=== PATIENT | male | born 1955 | race Caucasian/White ===

== ENCOUNTER 2022-06-28 06:16 | Day surgery (SDC) | payer OTHER, SELFPAY ==
[2022-06-28] VITALS (7 sets, daily range): BP systolic 142–162; BP diastolic 72–82; PULSE 72–79; RESP 14–20; TEMP 36.7–36.9; O2SAT 94–97; BMI 39.8
[2022-06-28] MEDS: lidocaine HCL 2 % MULTIDOSE 20 ML VIAL INJECTION (08:10)
[2022-06-28] MEDS: BUPIVACAINE 0.5% 30 ML INJECTION (08:10)
--- NOTE | 2022-06-28 08:34 | P.ORPRC_ITS ---
Procedure Note Date of procedure: 06/28/22 Procedure: Preop diagnosis: Right hand index finger stenosing tenosynovitis Postop diagnosis: Right hand index finger stenosing tenosynovitis Procedure: Right hand index finger A1 dariel release Anesthesia: Local Surgeon: Lizandro Gonzalez MD housing assistant property manager: Deidre Brown PA-C EBL: 0 mL Complications: None Specimens: None Drains: None Preoperative antibiotics: None Indications: The patient has a history of right upper extremity index finger painful catching and locking. Despite appropriate non operative management including flexor tendon sheath corticosteroid injections they continue to have symptoms. Operative intervention was recommended. The risks, benefits alternatives and expected outcomes were discussed in detail. These included but were not limited to: Infection, bleeding, injury to blood vessel or nerve, venous thromboembolism. All questions were answered to their satisfaction. The patient was placed supine on the operating room table. Local anesthesia was established with 0.5% Marcaine without epinephrine and 2% lidocaine without epinephrine. The hand was prepped and draped in usual sterile fashion. The limb was elevated the forearm pneumatic tourniquet was inflated to 250 mm of mercury. A transverse incision was made centered over the base of the index finger in proximal palmar crease. Subcutaneous dissection was taken through the palmar fascia to the flexor tendons with the tenotomy scissors. The A1 dariel was released with the 15 blade and a tenotomy scissors. Active flexion and extension of the finger shows no catching or locking, no bowstringing of the flexor tendons. The wound was closed with interrupted nylon sutures. A dry dressing was applied the tourniquet was released. Sponge and needle counts were correct x 2. The patient tolerated the procedure well, there were no apparent complications. They were sent to same day surgery in satisfactory condition. Plan: Use of the hand as tolerates. Discontinue the intraoperative dressing on postoperative day 3 and may get the wound wet as tolerates. Follow up in the office in 2 weeks for a wound check and suture removal.
== END 2022-06-28 08:47 | disposition home or self-care (01) ==
PROVIDERS: PCP Family Medicine; Visit Provider Orthopaedic Surgery
PROC: (CPT 26055; principal; 2022-06-28 08:15)
DX: M65.321 Trigger finger, right index finger (principal); M65.841 Other synovitis and tenosynovitis, right hand
CPT/HCPCS: 26055; J3490

== ENCOUNTER 2023-02-08 13:49 | Outpatient (CLI) | payer OTHER, SELFPAY ==
[2023-02-08 14:40] LABS: Hematocrit 48.3 % (37.0-53.0); Hemoglobin* 16.5 gm/dL (13.5-17.5); Mean Corpuscular Volume 94 fL (80-100); Red Blood Count 5.13 m/uL (4.30-5.90); White Blood Count* 5.98 K/uL (4.50-11.00)
[2023-02-08 14:41] LABS: Mean Corpuscular HGB Conc 34 gm/dL (32-36); Mean Corpuscular Hemoglobin 32 pg (26-34); Platelet Count* 98 K/uL (140-440)
[2023-02-08 14:44] LABS: Slide Review Reflex Yes
[2023-02-08 15:17] LABS: Slide Review Acceptable Review (Acceptable)
[2023-02-08 23:57] LABS: Albumin* 4.1 g/dL (3.3-5.0); Chloride* 107 mmol/L (96-114); Sodium* 139 mmol/L (135-149)
[2023-02-08 23:58] LABS: Potassium* 4.2 mmol/L (3.6-5.1)
[2023-02-09] LABS: Alkaline Phosphatase* 216 U/L (40-150); Anion Gap 4 mEq/L (7-15); Aspartate Amino Transferase* 72 U/L (12-35); Bilirubin Total* 1.9 mg/dL (0.1-1.5); Blood Urea Nitrogen* 15 mg/dL (7-30); Carbon Dioxide* 28 mmol/L (20-32); Cholesterol* 218 mg/dL (90-199); Creatinine* 0.7 mg/dL (0.5-1.5); Estimated Glomerular Filt Rate 102 ml/min; Glucose* 88 mg/dL (60-115); Triglycerides* 107 mg/dL (40-149)
[2023-02-09 00:01] LABS: Alanine Aminotransferase* 47 U/L (4-50); Calcium* 9.7 mg/dL (8.4-10.6)
[2023-02-09 00:08] LABS: HDL Cholesterol* 116 mg/dL (>=40); LDL Cholesterol Calculated 81 mg/dL (<100)
[2023-02-09 00:25] LABS: PSA Screen* 1.25 ng/mL (0.10-4.00)
== END 2023-02-08 13:50 | disposition home or self-care (01) ==
PROVIDERS: PCP Family Medicine; Visit Provider Family Medicine
DX: R10.9 Unspecified abdominal pain (principal); Z12.5 Encounter for screening for malignant neoplasm of prostate; Z13.220 Encounter for screening for lipoid disorders
CPT/HCPCS: 80053; 80061; 84153; 85027

== ENCOUNTER 2023-02-14 14:40 | Outpatient (CLI) | payer OTHER, SELFPAY ==
--- NOTE | 2023-02-14 15:00 | CRLHL7_ITS ---
For Patients: As a result of the Century Cures Act, medical imaging exams and procedure reports are released immediately into your electronic medical record. You may view this report before your referring provider. If you have questions, please contact your health care provider. INDICATION: ABD pain and abnormal liver functions COMPARISON: none TECHNIQUE: Real time barroso scale imaging and color Doppler analysis was performed of the right upper quadrant. FINDINGS: The liver contour is lobular and the echotexture is coarsened. No intrahepatic mass. There is a normal appearance of the hepatic IVC and proximal abdominal aorta. There is no evidence of ascites. The gallbladder is of normal size and there is no evidence of intraluminal stones or sludge. The gallbladder wall measures 3.2 mm in thickness. The common bile duct is of normal size and measures 6.1 mm in diameter at the level of the gibran hepatis. The pancreas appears normal. There is no evidence of a stone or hydronephrosis within the right kidney. The right kidney measures 13.6 cm in length. Right renal cysts are present measuring up to 3.3 x 3.4 x 3.4 cm. IMPRESSION: Coarsened hepatic echotexture with a lobular contour suggesting cirrhosis. No ascites. Normal gallbladder. Dictated by Francisco Vo MD @ 02/15/2023 11:50:25 AM (Electronically Signed)
== END 2023-02-14 14:41 | disposition home or self-care (01) ==
LOC: US 14:41
PROVIDERS: PCP Family Medicine; Visit Provider Family Medicine
DX: R10.9 Unspecified abdominal pain (principal); R79.89 Other specified abnormal findings of blood chemistry
CPT/HCPCS: 76705

== ENCOUNTER 2024-08-04 09:09 | Outpatient (CLI) | payer OTHER, SELFPAY | END 2024-08-04 09:10 | disposition home or self-care (01) | PROVIDERS: PCP Family Medicine; Visit Provider Family Medicine | DX: N40.0 Benign prostatic hyperplasia without lower urinary tract symptoms (principal); Z13.228 Encounter for screening for other metabolic disorders; Z13.6 Encounter for screening for cardiovascular disorders; Z12.5 Encounter for screening for malignant neoplasm of prostate | CPT/HCPCS: 80048; 80061; G0103 ==

== ENCOUNTER 2024-08-22 10:08 | Emergency (ER) | payer OTHER, SELFPAY ==
--- OUTSIDE RECORDS SUMMARY | 2014-04-07 06:30 | XMS_ITS | Continuity of Care Document ---
Author Organization JORGITO Winter Address [address] [facility] [address] [place] [address] Phone Care Team Providers Care Canopy Inspector Name Role Phone Unavailable Unavailable Unavailable Allergies, Adverse Reactions, Alerts Substance Reaction Status Criticality fentanyl Anxiety Active No Information Penicillins Hives Active No Information Medications Medication Instructions Dosage Effective Dates (start - stop) Status Comments Prilosec 10 mg capsule,delayed release take 1 Capsule by ORAL route every day before a meal 10 MG - Active ibuprofen 200 mg capsule take 2 capsule by oral route every 6 hours as needed 400 MG - Active Procedures Procedure Date Inj Anes Facet Jt; Lumb/sac-2nd Level Ja Inj Anes Facet Jt; Lumb/sac-3rd Level Ja Inj Anes Facet Jt; Lumb/sac-1st Level New Pt Eval 45 Min Pain Assessment And Follow Up Plan Docum ented Advance Directives Directive Yes / No Effective Date File Name No Information Encounters Encounter Description Practice Location Reason(s) For Visit Diagnoses Date Provider Providers Copied on Encounter JORGITO Winter, [address], [place], [place], [id number], [place] tel:[phone] [facility] No Information 5 No Information New Pt Eval 45 Min JORGITO Winter, [address], [place], [place], [id number], [place] tel:[phone] [facility] No Information 5 No Information Referring Provider: REFERRAL SELF, JORJE. Family History Family Member Type Diagnosis Age At Onset Sister Problem (finding) Cancer Sister Problem (finding) Heart Disease Brother Problem (finding) Renal disease Brother Problem (finding) Cancer Mother Problem (finding) Cancer Father Problem (finding) Cancer Payers Payer name Insurance type Covered libertarian ID Nicola bright(s) [employer] [id number] Social History Type Description Quantity Date Captured Comments Alcohol Use Details No Caffeine Use Details No Tobacco Use Status Occasional cigarette smoker Smoking Status No Information Smoking Tobacco Use Details Cigarette: No Details Available Cigarette: No Details Available Sex Male Vital Signs Date / Time: Height Weight BMI Pulse Rate Blood Pressure Temperature Respiratory Rate Body Surface Area Head Circumference Head Circ. Percentile Wt./Jass. Percentile BMI percentile Pulse Ox Inhaled Ox 10:56 AM 78 /min 146/88 mm[Hg] 98.90 F 98 % 11:09 AM 82 /min 141/85 mm[Hg] 16 /min 98 % 11:14 AM 82 /min 141/85 mm[Hg] 16 /min 98 % 11:19 AM 83 /min 132/86 mm[Hg] 16 /min 97 % 11:24 AM 82 /min 134/84 mm[Hg] 16 /min 97 % 11:29 AM 82 /min 133/91 mm[Hg] 16 /min 97 % 11:39 AM 79 /min 136/87 mm[Hg] 16 /min 96 % 11:44 AM 72 /min 135/86 mm[Hg] 16 /min 99 % 11:58 AM 71 /min 137/88 mm[Hg] 16 /min 99 % Chief Complaint And Reason For Visit No Information Reason For Referral Reason For Referral No Information History Of Present Illness Encounter Date Complaint History Of Prese nt Illness No Information Functional Status Date Functional Assessmen t Pain Score 1/10 Pain Score 0/10 Pain Score 0/10 Instructions Date Instruction Additional Infor mation Epidural Steroid Injection educa tion Epidural Steroid Injection educa tion Assessments Type Assessment Date No Information Patient Care Teams Name Effective Dates (start - stop) Status Members No Information
--- OUTSIDE RECORDS SUMMARY | 2014-04-07 06:30 | XMS_ITS | Continuity of Care Document ---
Author Organization JORGITO Winter Address [address] [facility] [address] [place] [address] Phone Care Team Providers Care Adjunct Professor Of Law Name Role Phone Unavailable Unavailable Unavailable Allergies, Adverse Reactions, Alerts Substance Reaction Status Criticality fentanyl Anxiety Active No Information Penicillins Hives Active No Information Medications Medication Instructions Dosage Effective Dates (start - stop) Status Comments ibuprofen 200 mg capsule take 2 capsule by oral route every 6 hours as needed 400 MG - Active Prilosec 10 mg capsule,delayed release take 1 Capsule by ORAL route every day before a meal 10 MG - Active Procedures Procedure Date Inj [...] Providers Copied on Encounter JORGITO Winter, [address] [facility] [address], [place], [place], [id number], [place] tel:[phone] [facility] No Information 5 No Information New Pt Eval 45 Min JORGITO Winter, [address] [facility] [address], [place], [place], [id number], [place] tel:[phone] [facility] No Information 5 No Information Referring Provider: REFERRAL SELF, JORJE. Family History Family Member Type Diagnosis Age At Onset Sister Problem (finding) Cancer Sister Problem (finding) Heart Disease Brother Problem (finding) Renal disease Brother Problem (finding) Cancer Mother Problem (finding) Cancer Father Problem (finding) Cancer Payers Payer name Insurance type Covered constitution party ID Nicola bright(s) [employer] [id number] Social History Type Description Quantity Date Captured [...]
--- OUTSIDE RECORDS SUMMARY | 2024-07-20 04:01 | XMS_ITS | Continuity of Care Document ---
Author Organization [facility] Address [address] [address] [place] [address] Phone Care Team Providers Care Banking And Finance Instructor Name Role Phone Maria Guadalupe Muñoz CRNA Unavailable Unavailable Allergies, Adverse Reactions, Alerts Substance Reaction Status Criticality No Known Allergies Active No Inform ation Medications Medication Instructions Dosage Effective Dates (start - stop) Status Comments omeprazole 20 mg capsule,delayed release take 1 capsule by oral route every day 30 minutes to 1 hour before a meal 20 MG - Active tramadol 50 mg tablet take 1 tablet by o ral route every 6 hours as needed 50 MG - Active tizanidine 2 mg capsule take 1 capsule by oral route every 6 - 8 hours as needed not to exceed 3 doses in 24 hours 2 MG - Active Tylenol 8 Hour 650 mg tablet,extended release take 1 tablet by oral route 2 times every day as needed swallowing whole with water. Do not break, crush, dissolve and/or chew. 650 MG - Active Procedures Procedure Date Colonoscopy Flex; W/remov Les- Level Iv-surg Path Gross/micro Advance Directives Directive Yes / No Effective Date File Name No Information Encounters Encounter Description Practice Location Reason(s) For Visit Diagnoses Date Provider Providers Copied on Encounter [facility], [address] [address], [place], [id number], [place] tel:[phone] [facility] No Information Toni Lerma. [address] [facility] [facility] [address], [place], [id number] , [place]. tel:[phone] Referring Provider: Ascencion Kate MD, [address] [facility] [address], [place], [address] . tel:[phone] [facility], [address] [address], [place], [id number], [place] tel:[phone] [facility] GI Symptoms or Concerns (chief complaint) Colorectal polypsDiverticulosi s of colon without diverticulitisHisto ry of colon polypsInternal and external hemorrhoids without complicationEncount er for screening for malignant neoplasm of colonBenign neoplasm of rectumBenign neoplasm of descending colonPersonal history of adenomatous and serrated colon polyps 5 [place]. [address] [facility], [facility] [address], [place], [id number] , [place]. tel:[phone] Referring Provider: Referral Self, USE FOR SELF REFERRALS. [facility], [address] [address], [place], [id number], [place] tel:[phone] [facility] No Information 5 Shine Holcomb. [address] [facility], [facility] [address], [place], [address] , [place]. tel:[phone] Family History Family Member Type Diagnosis Age At Onset Brother Problem (finding) Hepatitis C Brother Problem (finding) Cirrhosis Brother Problem (finding) Colon polyps Father Problem (finding) GERD Immunizations Vaccine Date Status Comments Pneumococcal conjugate vacci ne 20-valent (PCV20), polysaccharide [id number] conjugate, adjuvant, preservative free administered Note: [facility] bi-direct ional interface ; Source: Other Registry tetanus toxoid, reduced diphtheria toxoid, and acellular pertussis vaccine, adsorbed administered Note: [facility] b i-directional interface ; Source: Other Registry SARS-COV-2 (COVID-19) vaccin e, mRNA, spike protein, LNP, preservative free, 30 mcg/0.3mL dose administered Note: [facility] bi-direct ional interface ; Source: Other Registry SARS-COV-2 (COVID-19) vaccin e, mRNA, spike protein, LNP, preservative free, 30 mcg/0.3mL dose administered Note: [facility] bi-direct ional interface ; Source: Other Registry Afluria Qd administered Note: [facility] bi-directional interface ; Source: Other Registry zoster vaccine, live administered Note: [facility] bi-directional interface ; Source: Other Registry tetanus toxoid, reduced diphtheria toxoid, and acellular pertussis vaccine, adsorbed administered Note: [facility] b i-directional interface ; Source: Other Registry tetanus and diphtheria toxoi ds, adsorbed, preservative free, for adult use (5 Lf of tetanus toxoid and 2 Lf of diphtheria toxoid) administered Note: [facility] C bi- directional interface ; Source: Other Registry Payers Payer name Insurance type Covered democrat ID Nicola bright(s) [employer] [id number] Social History Type Description Quantity Date Captured Comments Sex Male Smoking Status No Information Chief Complaint And Reason For Visit No Information Reason For Referral Reason For Referral No Information Plan Of Treatment Date Type Action Status Referral Ordered: Colonoscopy Appointment date/timeframe: 07/21/2027 ordered History Of Present Illness Encounter Date Complaint History Of Prese nt Illness GI Symptoms or Concerns Functional Status Date Functional Assessmen t No Information Instructions Date Instruction Additional Infor mation Diverticulosis/Diverticulitis Re lated to Colorectal polyps Colon Polyps Related to Color ectal polyps Hemorrhoids Related to Color ectal polyps Colon Cancer Prevention Related to Colorectal polyps Assessments Type Assessment Date No Information Patient Care Teams Name Effective Dates (start - stop) Status Members No Information
--- OUTSIDE RECORDS SUMMARY | 2024-07-20 04:01 | XMS_ITS | Continuity of Care Document ---
Author Organization [facility] Address [address] [address] [place] [address] Phone Care Team Providers Care Revenue Stamp Cutter Name Role Phone Maria Guadalupe Muñoz CRNA [...] Diagnoses Date Provider Providers Copied on Encounter [facility], [address] [address], [place], [id number], [place] tel:[phone] [facility] No Information Toni Lerma. [address] [facility], [facility] [address], [place], [place], [id number] , [place]. tel:[phone] Referring Provider: Ascencion Kate MD, [address] [facility] [address], [place], [address] . tel:[phone] [facility], [address] [address], [place], [id number], [place] tel:[phone] [facility] GI Symptoms or Concerns (chief complaint) Colorectal polypsDiverticulosi s of colon without diverticulitisHisto ry of colon polypsInternal and external hemorrhoids without complicationEncount er for screening for malignant neoplasm of colonBenign neoplasm of rectumBenign neoplasm of descending colonPersonal history of adenomatous and serrated colon polyps 5 [place]. [address] [facility], [facility] [address], [place], [id number] , [place]. tel:[phone] Referring Provider: Referral Self, USE FOR SELF REFERRALS. [facility], [address] [address], [place], [id number], [place] tel:[phone] [facility] No Information 5 Shine Holcomb. [address] [facility], [facility] [address], [place], [address] , [place]. tel:[phone] Family History Family Member Type Diagnosis Age At Onset Brother Problem (finding) Hepatitis C Brother Problem (finding) Cirrhosis Brother Problem (finding) Colon polyps Father Problem (finding) GERD Immunizations Vaccine Date Status Comments Pneumococcal conjugate vacci ne 20-valent (PCV20), polysaccharide [id number] conjugate, adjuvant, preservative free administered Note: [facility] [...] Registry Payers Payer name Insurance type Covered constitution party ID Nicola bright(s) [employer] [id number] Social History Type Description Quantity Date Captured [...]
[2024-08-22] VITALS (8 sets, daily range): BP systolic 145–155; BP diastolic 74–80; PULSE 90–104; RESP 13–18; TEMP 37.3–37.9; O2SAT 87–96; BMI 25.7
--- OUTSIDE RECORDS SUMMARY | 2024-08-22 10:09 | XMS_ITS | Clinical Summary ---
Author Organization [facility] Address [address] [place] [address] Care Team Providers Care Director Business Name Role Phone Pcp, No Primary Care Provider Unavailabl e Allergies Active Allergy Reactions Criticality Noted Date Comments Fentanyl Anxiety 09/26/2006 Penicillins 07/24/2006 lightheaded and nausated Medications ibuprofen (ADVIL; MOTRIN) 200 mg tablet Take 3 tablets by mouth once daily. 0 04/22/2009 Active naproxen (NAPROSYN) 500 mg tablet Take 1 tablet by mouth 2 times daily with meals. 36 tablet 1 07/23/2014 1:01 PM CDT 07/22/2014 Active omeprazole (PRILOSEC) 20 mg Delayed-Release capsuleIndicatio ns:Gastroesophag eal reflux disease, esophagitis presence not specified Take 1 capsule by mouth once daily before a meal. 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 Immunizations Immunization Administration Dates Next Due AMB Influenza, IIV4 PF (=>6 mos Flulaval,Fluzone Fluarix)(Flu Clinic Only) 12/22/2013 Hepatitis B (Adult) 09/09/1992,04/12/1992,1992 Influenza, IIV3 (Age >=3 years) 01/06/2013,02/02 Td (Age >=7 Years) 05/08/2006 Tdap 06/13/2012 Zoster (Zostavax-ZVL, live) 01/06/2013 Family History Medical History Relation Name Comments Other Brother liver cancer Other Father lymphoma Other Mother lymphoma Diabetes Sister type 1 Relation Name Status Comments Brother Father Alive Mother Sister Social History Tobacco Use Types Packs/Day Years Used Date Smoking Tobacco: Former Cigarettes Q uit: 03/11/1986 Smokeless Tobacco: Never Tobacco Cessation:Counseling Given: Yes Alcohol Use Standard Drinks/Week Comments No 0 (1 standard drink = 0.6 oz pur e alcohol) Sex and Gender Information Value Date Recorded Sex Assigned at Not on file Legal Sex Male 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 DEPARTMENT MANAGER Gender Identity Not on file Sexual Orientation Not on file Occupation Industry Job Start Date Job End Date [employer] Not on file Not on file Not on file Obstetrics History Last Filed Vital Signs Vital Sign Reading Time Taken Comments Blood Pressure 121/82 02/21/2015 1:31 PM TOY DEPARTMENT MANAGER Pulse 76 02/21/2015 1:31 PM TOY DEPARTMENT MANAGER Temperature 36.8 C (98.2 F) 02/21/2015 1:31 PM TOY DEPARTMENT MANAGER Respiratory Rate - - Oxygen Saturation 96% 02/21/2015 1:31 PM TOY DEPARTMENT MANAGER Inhaled Oxygen Concentration - - Weight 95 kg (209 lb 8 oz) 02/21/2015 1:31 PM CS T Height 162.6 cm (5' 4) 12/28/2014 4:17 PM CDT Body Mass Index 35.96 12/28/2014 4:17 PM CDT Plan of Treatment Health Maintenance Due Date Last Done Comments Depression screening for age 12+ 1969 BMI (ht and wt on same day) for age 18+ 05/24/1975 Pneumococcal series for age 50+ (1 of 1 - PCV) 05/24/2007 Zoster (shingles) series for age 50+ (2 of 3) 03/03/2013 01/06/2013 Lipids for age 45-75 10/07/2018 10/07/2013, 06/13/2012, 04/22/2009, Additional history exists Colonoscopy through age 75 11/23/201811/23, 11/23/2013, 11/23/2013 Tetanus booster 06/13/2022 06/13/2012, 05/08/2006 COVID-19 vaccine series ( season) 2023 Influenza Vaccine (Season Ended) 2024 12/22/2013, 01/06/2013, 02/02/2002 RSV vaccine for adults or (1 - 1-dose 75+ series) 2032 Hepatitis B series for 19+ Completed 09/09, 04/12/1992, 03/12/1992 Hepatitis C screening for ag e 18-79 Completed 05/27/2006 Tdap Completed 06/13/2012 Procedures Procedure Name Priority Date/Time Associated Diagnosis Comments SCAN-COLONOSCOPY 11/23/2013 12:0 0 AM CDT LIPID PANEL W REFLEX MEASURED LDL Routine 10/07/2013 11:20 AM CDT Routine general medical examination at a health care facility ANTI HCV Timed 05/27/2006 2:17 PM CDT from Last 3 Months or Most Recently Relevant to Health Maintenance Results * SCAN-COLONOSCOPY (11/23/2013 12:00 AM CDT) Narrative 11/23/2013 12:00 AM CDT Procedure Note Scanner - 11/23/2013 12:00 AM CDT us Scanner OTHER Final Result * LIPID PANEL W REFLEX MEASURED LDL (10/07/2013 11:20 AM CDT) CHOLESTEROL,TOTAL 188 100 - 199 mg/dL 10/07/2013 11:51 AM CDT [facility] TRIGLYCERIDES 75 <150 mg/dL 10/07/2013 11:51 AM CDT [facility] HDL CHOLESTEROL 58 >40 mg/dL 4 11:51 AM CDT [facility] NON-HDL CHOLESTEROL 130 <145 mg/dl 10/07/2013 11:51 AM CDT [facility] CHOL/HDL RATIO 3.24 <4.50 10/07/2013 11:51 AM CDT [facility] LDL CHOLESTEROL 115 <=130 mg/dL 10/07/2013 11:51 AM CDT [facility] PATIENT STATUS FASTING 10/07/2013 11:51 AM CDT [facility] Blood specimen (specimen) BLOOD SPECIMEN / Unknown Venipuncture / Unknown 10/07/2013 11:20 AM CDT 10/07/2013 11:20 AM CDT us Francisco Mittal MD CHEMISTRY Final Resu lt [facility] [address] [place] [address], * ANTI HCV (05/27/2006 2:17 PM CDT) ANTI HCV Non-reactiv e [facility] 05/27/2006 2:17 PM CDT 05/27/2006 7:23 PM CDT Narrative [facility] - 06/02/2006 12:19 PM CDT Testing Performed By [place], [place] Francisco Mittal MD SEND OUTS Final Resu lt [facility] [address] [place] [address] from Last 3 Months or Most Recently Relevant to Health Maintenance Insurance [address] [place] [id number] [employer] [id number] [place] [id number] [employer] Care Teams Director Business Relationship Specialty Start Date End Date Pcp, No . PCP - General 08/01/20
--- NOTE | 2024-08-22 10:30 | CRLHL7_ITS ---
For Patients: As a result of the Century Cures Act, medical imaging exams and procedure reports are released immediately into your electronic medical record. You may view this report before your referring provider. If you have questions, please contact your health care provider. INDICATION: Left lower quadrant pain. COMPARISON: 06/05/2020 TECHNIQUE: CT of the abdomen and pelvis with intravenous contrast. Multiplanar axial, coronal, and sagittal reformats were reconstructed. Contrast: 71 mL Isovue 370. FINDINGS: Lung bases: Bands of linear atelectasis or scarring are about the same as the previous examination. Liver: Cirrhosis. Hepatic and portal veins appear to be patent. The umbilical vein is large and recannulated. Gallbladder and bile ducts: There is a single 5 millimeter densely calcified gallstone. No findings of cholecystitis. No bile duct dilation. Pancreas: Normal. Spleen: Splenomegaly. Spleen length is 15 centimeters. There is a large splenule at the anterior splenic hilum. No splenic infarct or mass. Adrenal glands: No adrenal mass or nodule. Kidneys: Normal overall renal size and position. Multi-cystic kidneys. There are several 2-3 millimeter urinary tract calculi bilaterally. Calculi are limited to the upper collecting system without any ureteral calculi. No urinary tract dilation. Urinary bladder: There is a 2 millimeter calcification in the dependent central bladder. Pelvis: No cyst or mass. Vessels: No significant atherosclerotic plaques. Retroaortic left renal vein. Mesenteric arteries and veins are patent. Large varices in the upper abdomen. Bowel: Focal sigmoid wall thickening with inflammation of a diverticulum. There is a small amount of extraluminal gas. There is a moderate amount of adjacent inflammatory stranding and some fluid layering in the left pericolic gutter inferiorly. No abscess or discrete collection. The remainder of the bowel has an unremarkable normal appearance. Normal appendix. Mild stool burden. Lymph nodes: Prominent upper abdominal lymph nodes may be reactive in the setting of cirrhosis. Peritoneum: Trace fluid around the sigmoid colon. No layering ascites. There is some focal free air adjacent to the sigmoid colon but there is not a large amount of intraperitoneal free air. Abdominal wall: Small fat containing umbilical hernia. No bowel containing hernia. Bones: No fractures. No focal worrisome bone lesions. IMPRESSION: 1. Perforated sigmoid diverticulitis. No abscess or collection. 2. Cirrhosis. Splenomegaly. Varices. No ascites. 3. Multi-cystic kidneys. 4. Bilateral nonobstructing nephrolithiasis. Please note that all CT scans at this facility use dose modulation, iterative reconstruction, and/or weight-based dosing when appropriate to reduce radiation dose to as low as reasonably achievable. Dictated by Miri Nowak MD @ 08/22/2024 11:24:36 AM (Electronically Signed)
--- NOTE | 2024-08-22 10:32 | ED.ABDPAIN ---
HPI - Abdominal Pain General Chief Complaint: Abdominal Pain Stated Complaint: severe pain, pt thinking he may have kidney stones Time Seen by Provider: 08/22/24 10:23 History of Present Illness HPI narrative: This 69-year-old male comes in with left-sided abdominal pain that began a couple days ago. He states that the pain is worse with movement. He thought he was constipated and did take some laxatives without relief. He did have a colonoscopy about a month ago with evidence of diverticulosis. Related Data Home Medications ?Medication ?Instructions ?Recorded ?Confirmed acetaminophen 325 mg tablet 650 mg PO DAILY 04/10/24 08/04/24 (Tylenol) bismuth subsalicylate 262 mg 1 tab PO Q30-60M PRN 04/10/24 08/04/24 chewable tablet (Pepto-Bismol) esomeprazole magnesium 20 mg 20 mg PO QDAY 05/11/24 08/04/24 capsule,delayed release (Nexium 24HR) Previous Rx's ?Medication ?Instructions ?Recorded tizanidine 4 mg tablet See Rx Instructions .Route 06/24/24 .COMPLEX #30 tabs alfuzosin 10 mg tablet,extended 10 mg PO QDAY #30 tabs 08/04/24 release 24 hr (Uroxatral) fluticasone 500 mcg-salmeterol 50 1 inh inhalation BID #60 ea 08/04/24 mcg/dose blistr powdr for inhalation tramadol 50 mg tablet 25 mg (1/2 x 50 mg) PO Q6H PRN 08/18/24 pain #60 tabs Allergies Allergy/AdvReac Type Severity Reaction Status Date / Time chestnut Allergy Unknown Verified 08/22/24 11:15 fentanyl Allergy Unknown Anxiety Verified 08/22/24 11:15 peanut Allergy Unknown Verified 08/22/24 11:15 Review of Systems Status of ROS Reports: 10 or more systems reviewed and unremarkable except as noted in History and below Narrative Constitutional: No fevers, no weight gain or loss. Eyes: No discharge. No vision changes. HENT: No congestion, no sore throat, no ear pain. Cardiovascular: No chest pain, no palpitations. Respiratory: No shortness of breath, no wheezes, no cough. Gastrointestinal: No vomiting, no diarrhea. Left-sided abdominal pain. Genitourinary: No dysuria, no hematuria. Musculoskeletal: Normal range of motion. Skin: No rashes, no pruritis. Neurological: No dizziness, weakness, sensory change, speech change. Endo/Heme/Allergies: No bruising or bleeding. No polydipsia. Pysch: no suicidality, no anxiety, no insomnia. All other systems reviewed and are negative. [facility] Medical History History of herpes zoster ?Z86.19 - Personal history of other infectious and parasitic diseases (ICD-10) Surgical History S/P trigger finger release (06/28/22) ?Z98.890 - Other specified postprocedural states (ICD-10) S/P trigger finger release (09/29/20) ?Z98.890 - Other specified postprocedural states (ICD-10) Status post excision of lipoma ?Z98.890 - Other specified postprocedural states (ICD-10) ?Z86.018 - Personal history of other benign neoplasm (ICD-10) Family History Unknown Diabetes Lymphoma Social History Smoking Status: Former smoker How often do you have a drink containing alcohol: never AUDIT-C Alcohol total score: 0 Non-prescribed substance use: denies use Exam Narrative: Exam Narrative: Constitutional: Well-developed, well-nourished, no acute distress. HEENT: Normocephalic, atraumatic. Neck: Normal range of motion. Nontender. Supple. Heart: Regular. No murmurs. Normal rate. Intact distal pulses. Lungs: Clear to auscultation. No chest discomfort. No wheezes, rhonchi, or rales. Abdomen: Normal bowel sounds. Left-sided abdominal pain with obvious rebound tenderness. Genitalia: Deferred. Back: No midline tenderness. Normal range of motion. Extremities: Normal range of motion. No injury. Skin: Intact. No rash. Warm. No erythema or pallor. Neurologic: No altered sensation. No weakness. Alert and oriented. Psychiatric: No suicidality. No anxiety or depression. No insomnia. Nursing notes and vitals signs are reviewed. Const: Vital Signs, click to edit/add: Vital Signs - 24 hr 08/22/24 10:14 08/22/24 10:38 08/22/24 10:55 Temperature 100.2 F H Pulse Rate [Pulse Oximeter] 90 Respiratory Rate 18 Blood Pressure [Ri ght Upper Arm] 145/74 H Pulse Oximetry 92 88 88 Oxygen Delivery Me thod Room Air Room Air Oxygen Flow Rate 08/22/24 10:55 08/22/24 12:01 08/22/24 12:04 Temperature Pulse Rate [Pulse Oximeter] 102 H Respiratory Rate 18 Blood Pressure [Ri ght Upper Arm] Pulse Oximetry 88 96 94 Oxygen Delivery Me thod Nasal Cannula Nasal Cannula Nasal Cannula Oxygen Flow Rate 2 2 08/22/24 12:42 08/22/24 13:12 08/22/24 15:44 Temperature 99.2 F Pulse Rate [Pulse Oximeter] 99 104 H Respiratory Rate 18 13 Blood Pressure [Ri ght Upper Arm] 149/80 H 155/75 H Pulse Oximetry 87 L 94 90 Oxygen Delivery Me thod Room Air Oxygen Flow Rate Course Vital Signs Vital signs: Initial Vital Signs Temperature 100.2 F H 08/22/24 10:14 Temperature Source Temporal Artery Scan 08/22/24 10:14 Pulse Rate 90 08/22/24 10:14 Respiratory Rate 18 08/22/24 10:14 Blood Pressure 145/74 H 08/22/24 10:14 Blood Pressure Mean 97 08/22/24 10:14 Pulse Oximetry 92 08/22/24 10:14 Oxygen Delivery Method Room Air 08/22/24 10:14 Vital Signs Temperature 100.2 F H 08/22/24 10:14 Pulse Rate 90 08/22/24 10:14 Respiratory Rate 18 08/22/24 10:14 Blood Pressure 145/74 H 08/22/24 10:14 Pulse Oximetry 92 08/22/24 10:14 Oxygen Delivery Method Room Air 08/22/24 10:14 Temperature 99.2 F 08/22/24 15:44 Pulse Rate 104 H 08/22/24 15:44 Respiratory Rate 13 08/22/24 15:44 Blood Pressure 155/75 H 08/22/24 15:44 Pulse Oximetry 90 08/22/24 15:44 Oxygen Delivery Method Room Air 08/22/24 15:44 Oxygen Flow Rate 2 08/22/24 12:04 Medications Administered Medications: Discontinued Medications Generic Name Dose Route Start Last Admin Trade Name Sang PRN Reason Stop Dose Admin Hydromorphone HCl 0.5 mg 08/22/24 10:30 08/22/24 10:51 Hydromorphone 0.5 Mg/0.5 Ml Inj IVP 08/22/24 10:31 0.5 mg ONCE ONE Administration Hydromorphone HCl 0.5 mg 08/22/24 11:41 08/22/24 11:53 Hydromorphone 0.5 Mg/0.5 Ml Inj IVP 08/22/24 11:42 0.5 mg ONCE ONE Administration Hydromorphone HCl 0.5 mg 08/22/24 15:38 08/22/24 15:54 Hydromorphone 0.5 Mg/0.5 Ml Inj IVP 08/22/24 15:39 0.5 mg ONCE ONE Administration Piperacillin Sod/Tazobactam 100 mls @ 200 mls/hr 08/22/24 11:43 08/22/24 12:31 Sod 3.375 gm/ Sodium Chloride IVPB 08/22/24 11:44 Infused ONCE ONE Infusion Ondansetron HCl 4 mg 08/22/24 10:30 08/22/24 10:51 Ondansetron 2 Mg/Ml Inj IVP 08/22/24 10:31 4 mg ONCE ONE Administration MDM - Abdominal Pain MDM Narrative Medical decision making narrative: This patient comes in with left-sided abdominal pain with obvious rebound tenderness. He was thinking it was a kidney stone but his symptoms were not typical of that. CT scan is obtained and shows evidence of diverticulitis with microperforations. I did speak with the hospitalist on-call who recommended transfer this patient as he does have history of liver cirrhosis. The patient did receive IV Zosyn and several doses of Dilaudid for symptomatic relief as he awaited transfer. I did speak with the surgeon at [facility] and a hospitalist who agreed to his transfer there. Lab Data Labs: Lab Results 08/22/24 Range/Units 10:38 WBC 13.61 H (4.50-11.00) K/uL RBC 4.45 (4.30-5.90) m/uL Hgb 14.8 (13.5-17.5) gm/dL Hct 44.5 (37.0-53.0) % MCV 100 (80-100) fL MCH 33 (26-34) pg MCHC 33 (32-36) gm/dL RDW Coeff of Quentin 13.8 (11.5-15.5) % Plt Count 59 L (140-440) K/uL Neut % (Auto) 78.1 H (42.0-72.0) % Lymph % (Auto) 9.3 L (20-44) % [place] % (Auto) 11.6 H (0.0-11.0) % Eos % (Auto) 0.5 (0.0-7.0) % Baso % (Auto) 0.1 (0.0-3.0) % Neut # (Auto) 10.60 H (1.7-7.0) K/uL Lymph # (Auto) 1.30 (0.90-2.90) K/uL [place] # (Auto) 1.60 H (0.00-0.90) K/UL Eos # (Auto) 0.10 (0.00-0.50) K/uL Baso # (Auto) 0.00 (0.00-0.30) K/uL Abs Immat Gran (auto) 0.10 (0.00-0.30) K/uL Imm/Tot Granulo (auto) 0.4 % INR 1.33 H (0.91-1.10) Sodium 133 L (135-149) mmol/L Potassium 4.0 (3.6-5.1) mmol/L Chloride 103 (96-114) mmol/L Carbon Dioxide 24 (20-32) mmol/L Anion Gap 6 L (7-15) mEq/L BUN 19 (7-30) mg/dL Creatinine 0.8 (0.5-1.5) mg/dL Estimated Creat Clear 57.69 Estimated GFR 97 ml/min Glucose 105 (60-115) mg/dL Calcium 9.1 (8.4-10.6) mg/dL Total Bilirubin 4.9 H (0.1-1.5) mg/dL Direct Bilirubin 0.6 H (0.0-0.5) mg/dL AST 71 H (12-35) U/L ALT 53 H (4-50) U/L Alkaline Phosphatase 161 H (40-150) U/L Total Protein 6.9 (6.0-8.3) g/dL Albumin 3.5 (3.3-5.0) g/dL Imaging Data CT scan - abdomen: Radiologist's impression: FINDINGS: Lung bases: Bands of linear atelectasis or scarring are about the same as the previous examination. Liver: Cirrhosis. Hepatic and portal veins appear to be patent. The umbilical vein is large and recannulated. Gallbladder and bile ducts: There is a single 5 millimeter densely calcified gallstone. No findings of cholecystitis. No bile duct dilation. Pancreas: Normal. Spleen: Splenomegaly. Spleen length is 15 centimeters. There is a large splenule at the anterior splenic hilum. No splenic infarct or mass. Adrenal glands: No adrenal mass or nodule. Kidneys: Normal overall renal size and position. Multi-cystic kidneys. There are several 2-3 millimeter urinary tract calculi bilaterally. Calculi are limited to the upper collecting system without any ureteral calculi. No urinary tract dilation. Urinary bladder: There is a 2 millimeter calcification in the dependent central bladder. Pelvis: No cyst or mass. Vessels: No significant atherosclerotic plaques. Retroaortic left renal vein. Mesenteric arteries and veins are patent. Large varices in the upper abdomen. Bowel: Focal sigmoid wall thickening with inflammation of a diverticulum. There is a small amount of extraluminal gas. There is a moderate amount of adjacent inflammatory stranding and some fluid layering in the left pericolic gutter inferiorly. No abscess or discrete collection. The remainder of the bowel has an unremarkable normal appearance. Normal appendix. Mild stool burden. Lymph nodes: Prominent upper abdominal lymph nodes may be reactive in the setting of cirrhosis. Peritoneum: Trace fluid around the sigmoid colon. No layering ascites. There is some focal free air adjacent to the sigmoid colon but there is not a large amount of intraperitoneal free air. Abdominal wall: Small fat containing umbilical hernia. No bowel containing hernia. Bones: No fractures. No focal worrisome bone lesions. IMPRESSION: 1. Perforated sigmoid diverticulitis. No abscess or collection. 2. Cirrhosis. Splenomegaly. Varices. No ascites. 3. Multi-cystic kidneys. 4. Bilateral nonobstructing nephrolithiasis. Discharge Plan Discharge Clinical Impression: Diverticulitis Patient Disposition: Xfer [facility] Discharge Location: [facility] Condition: Unchanged Prescriptions: No Action fluticasone propion-salmeterol 500-50 mcg/dose blister with device 1 inh inhalation BID Qty: 60 6RF alfuzosin [Uroxatral] 10 mg tablet extended release 24 hr 10 mg PO QDAY Qty: 30 6RF Rx Instructions: administer after the same meal each day bismuth subsalicylate [Pepto-Bismol] 262 mg tablet,chewable 1 tab PO Q30-60M PRN Rx Instructions: do not exceed 16 tabs per 24 hrs acetaminophen [Tylenol] 325 mg tablet 650 mg PO DAILY esomeprazole magnesium [Nexium 24HR] 20 mg capsule,delayed release(DR/EC) 20 mg PO QDAY tizanidine 4 mg tablet See Rx Instructions .ROUTE .COMPLEX Qty: 30 2RF Dose Instruction: TAKE 1/2 TO 1 TABLET BY MOUTH EVERY 8 HOURS NEEDED FOR MUSCLE SPASTICITY Rx Instructions: TAKE 1/2 TO 1 TABLET BY MOUTH EVERY 8 HOURS NEEDED FOR MUSCLE SPASTICITY tramadol 50 mg tablet 25 mg PO Q6H PRN (Reason: pain) Qty: 60 1RF Rx Instructions: Inform patient he should reduce to 2 tabs daily on half the days, or use half tabs at times.
[2024-08-22 10:47] LABS: Basophils Percent Auto 0.1 % (0.0-3.0); Eosinophils Percent Auto 0.5 % (0.0-7.0); Hematocrit 44.5 % (37.0-53.0); Hemoglobin* 14.8 gm/dL (13.5-17.5); Immature Granulocytes Pct Auto 0.4 %; Lymphocytes Percent Auto 9.3 % (20-44); Mean Corpuscular HGB Conc 33 gm/dL (32-36); Mean Corpuscular Hemoglobin 33 pg (26-34); Mean Corpuscular Volume 100 fL (80-100); Monocytes Percent Auto 11.6 % (0.0-11.0); Neutrophils Percent Auto 78.1 % (42.0-72.0); Platelet Count* 59 K/uL (140-440); RDW Coefficient of Variation % 13.8 % (11.5-15.5); Red Blood Count 4.45 m/uL (4.30-5.90); White Blood Count* 13.61 K/uL (4.50-11.00)
[2024-08-22] MEDS: HYDROmorphone 0.5 mg/0.5 ml inj IVP ×3 (10:51→15:54)
[2024-08-22] MEDS: ONDANSETRON 2 MG/ML inj 4 MG IVP (10:51)
[2024-08-22 10:57] LABS: Slide Review Reflex No
[2024-08-22 10:59] LABS: Chloride* 103 mmol/L (96-114); Sodium* 133 mmol/L (135-149)
[2024-08-22 11:02] LABS: Blood Urea Nitrogen* 19 mg/dL (7-30); Creatinine* 0.8 mg/dL (0.5-1.5); Est. Creatinine Clearance* 57.69; Estimated Glomerular Filt Rate 97 ml/min
[2024-08-22 11:03] LABS: Anion Gap 6 mEq/L (7-15); Calcium* 9.1 mg/dL (8.4-10.6); Carbon Dioxide* 24 mmol/L (20-32); Glucose* 105 mg/dL (60-115)
[2024-08-22] MEDS: PIPERACILLIN/TAZOBACTAM 3.375 GM in 0.9 % SODIUM CHLORIDE Mini-bag 100 ML IVPB (11:55)
[2024-08-22 12:08] LABS: Albumin* 3.5 g/dL (3.3-5.0)
[2024-08-22 12:10] LABS: INR 1.33 (0.91-1.10); Prothrombin Time 17.5 Seconds
[2024-08-22 12:11] LABS: Alanine Aminotransferase* 53 U/L (4-50); Alkaline Phosphatase* 161 U/L (40-150); Aspartate Amino Transferase* 71 U/L (12-35); Bilirubin Direct* 0.6 mg/dL (0.0-0.5); Bilirubin Total* 4.9 mg/dL (0.1-1.5); Total Protein* 6.9 g/dL (6.0-8.3)
--- NOTE | 2024-08-22 15:52 | ED.NURSE ---
Pt report called to [facility], was also given contact and room information. Dispatch called for patient transfer.
== END 2024-08-22 16:11 | disposition short-term general hospital (02) ==
LOC: ED 10:57
PROVIDERS: Emergency Provider Emergency Medicine Emergency Medical Services; PCP Family Medicine
DX: K57.20 Diverticulitis of large intestine with perforation and abscess without bleeding (principal)
CPT/HCPCS: 36415; 74177; 80048; 80076; 85025; 85610; 87040; 94761; 96365; 96375; 96376; 99285; J1171; J2405; J2543; Q9967

== ENCOUNTER 2024-08-22 16:03 | Outpatient (CLI) | payer OTHER, SELFPAY | END 2024-08-22 16:04 | disposition home or self-care (01) | LOC: AMB 08-24 10:18 | PROVIDERS: PCP Family Medicine; Visit Provider Student in an Organized Health Care Education/Training Program | DX: K57.92 Diverticulitis of intestine, part unspecified, without perforation or abscess without bleeding (principal) | CPT/HCPCS: A0425; A0427 ==

== ENCOUNTER 2024-08-28 10:17 | Outpatient (CLI) | payer OTHER, SELFPAY | END 2024-08-28 10:18 | disposition home or self-care (01) | LOC: LKVREF 10:18 | PROVIDERS: PCP Family Medicine; Visit Provider Family Medicine | DX: Z13.29 Encounter for screening for other suspected endocrine disorder (principal) | CPT/HCPCS: 84439; 84443 ==

== ENCOUNTER 2024-09-22 15:31 | Outpatient (CLI) | payer OTHER, SELFPAY | END 2024-09-22 15:32 | disposition home or self-care (01) | PROVIDERS: PCP Family Medicine; Visit Provider Family Medicine | DX: K74.60 Unspecified cirrhosis of liver (principal); R60.0 Localized edema | CPT/HCPCS: 80076; 84439; 84443 ==